=== PATIENT | female | born 1935 | race Caucasian/White ===

== ENCOUNTER 2017-04-02 06:52 | Day surgery (SDC) | payer MEDICARE ==
[2017-04-02 07:12] LABS: ADD MAN DIFF? NO
[2017-04-02 07:19] LABS: WHITE BLOOD COUNT 5.2 10^3/ul (4.8-10.8)
[2017-04-02 07:19] LABS: BASOPHILS % 0.8 % (0.0-2.0); EOSINOPHILS # 0.1 10^3/ul (0.0-0.5); EOSINOPHILS % 2.5 % (0.0-7.0); HEMATOCRIT 40.6 % (37.0-47.0); HEMOGLOBIN 13.9 g/dl (12.0-16.0); LYMPHOCYTES # 1.6 10^3/ul (0.8-2.9); LYMPHOCYTES % 31.1 % (15.0-51.0); MEAN CORPUSCULAR HEMOGLOBIN 31.9 pg (29.0-33.0); MEAN CORPUSCULAR HGB CONC 34.2 g/dl (32.0-37.0); MEAN CORPUSCULAR VOLUME 93.1 fl (82.0-101.0); MEAN PLATELET VOLUME 9.1 fl (7.4-10.4); MONOCYTE # 0.6 10^3/ul (0.3-0.9); MONOCYTES % 11.1 % (0.0-11.0); NEUTROPHIL # 2.8 10^3/ul (1.6-7.5); NEUTROPHILS % 54.1 % (39.0-77.0); PLATELET COUNT 173 10^3/UL (140-415); RED BLOOD COUNT 4.36 10^6/ul (4.20-5.40); RED CELL DISTRIBUTION WIDTH 12.8 % (11.5-14.5)
[2017-04-02] MEDS ORDERED: IODIXANOL LOCM 100 ML BTL (07:26)
[2017-04-02] MEDS ORDERED: LIDOCAINE 1% (MDV) 20 ML INJ (07:26)
[2017-04-02] MEDS ORDERED: HEPARIN 1000 UNITS/ML 10 ML INJ (07:26)
[2017-04-02] MEDS ORDERED: MIDAZOLAM 1 MG/ML 2 ML INJ (07:27)
[2017-04-02] MEDS ORDERED: VERAPAMIL 5 MG INJ (07:27)
[2017-04-02] MEDS ORDERED: NITROGLYCERIN (IC) 100 MCG/ML INJ (07:27)
[2017-04-02] MEDS ORDERED: FENTAnyl 50 MCG/ML VIAL (07:27)
[2017-04-02 07:42] LABS: ALANINE AMINOTRANSFERASE 61 IU/L (13-69); ALBUMIN 4.2 g/dl (3.3-4.9); ALBUMIN/GLOBULIN RATIO 1.23; ALKALINE PHOSPHATASE 145 IU/L (42-121); ANION GAP 13 (8-16); ASPARTATE AMINO TRANSFERASE 61 IU/L (15-46); BILIRUBIN,INDIRECT 0.3 mg/dl (0-1.1); BILIRUBIN,TOTAL 0.3 mg/dl (0.2-1.3); CARBON DIOXIDE 29 mmol/L (21-31); CHLORIDE 104 mmol/L (97-110); GLUCOSE 90 mg/dl (70-220); TOTAL PROTEIN 7.6 g/dl (6.1-8.1)
[2017-04-02 07:51] LABS: INR 0.92; PROTIME 12.4 Sec (11.9-14.9)
[2017-04-02 07:56] LABS: BLOOD UREA NITROGEN 29 mg/dl (7-20); CALCIUM 10.2 mg/dl (8.4-10.2); CREATININE 0.89 mg/dl (0.44-1.00); POTASSIUM 4.4 mmol/L (3.5-5.1); SODIUM 142 mmol/L (135-144)
[2017-04-02 08:08] LABS: PARTIAL THROMBOPLASTIN TIME 24.9 Sec (25.0-35.0)
[2017-04-02] MEDS ORDERED: ACETAMINOPHEN 325 MG TAB PO (09:00)
[2017-04-02] MEDS ORDERED: AL HYDROX/MG HYDROX/SIMETH 30 ML CUP PO (09:00)
[2017-04-02] MEDS ORDERED: ONDANSETRON 4 MG INJ IV (09:00)
[2017-04-02] MEDS: SOD CHLORIDE 0.45% 1,000 ML IV (10:17)
== END 2017-04-02 13:25 | disposition home or self-care (01) ==
LOC: SDS 06:52
DX: I42.9 Cardiomyopathy, unspecified (principal); I25.10 Atherosclerotic heart disease of native coronary artery without angina pectoris; I48.91 Unspecified atrial fibrillation; I10 Essential (primary) hypertension
CPT/HCPCS: 80053; 85025; 85610; 85730; 93005; 93458